=== PATIENT | female | born 1990 | race Two or more races ===

== ENCOUNTER 2016-09-27 10:43 | Emergency (ER) | payer MEDICAID ==
[2016-09-27 10:58] VITALS: BP 125/86; PULSE 100; RESP 18; O2SAT 98
[2016-09-27 11:01] VITALS: TEMP 98.1
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
== END 2016-09-27 12:01 | disposition home or self-care (01) ==
LOC: CED 10:43
DX: M25.531 Pain in right wrist (principal); Z72.0 Tobacco use
CPT/HCPCS: 73110-PO; 99203-PO; G0463-PO; L3807

== ENCOUNTER 2018-10-29 12:28 | Emergency (ER) | payer MEDICAID ==
[2018-10-29] MEDS ORDERED: NS 1,000 ML IV ONE (13:06)
[2018-10-29] MEDS ORDERED: KETOROLAC 15 MG/1 ML SDV IVP ONE ×2 (13:08→14:15)
[2018-10-29] MEDS ORDERED: HYOSCYAMINE SULFATE 0.125 MG TAB PO ONE (13:08)
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
[2018-10-29 15:08] VITALS: BP 104/85
== END 2018-10-29 14:39 | disposition home or self-care (01) ==
LOC: CED 12:28
DX: R10.33 Periumbilical pain (principal); Z90.49 Acquired absence of other specified parts of digestive tract; E86.9 Volume depletion, unspecified
CPT/HCPCS: 76705-PO; 80048-ER; 81025-ER; 85025-QW-ER; 96361-ER; 96374-ER; 96376-ER; 99284-ER; J1885